=== PATIENT | female | born 1980 | race Hispanic/Latino ===

== ENCOUNTER 2021-06-14 12:00 | Emergency (ER) | payer OTHER ==
[2021-06-14] MEDS ORDERED: Ibuprofen 200 MG TAB ONE (12:21)
== END 2021-06-14 13:08 | disposition home or self-care (01) ==
LOC: ERS 12:00
DX: S83.91XA Sprain of unspecified site of right knee, initial encounter (principal); E11.9 Type 2 diabetes mellitus without complications; E78.5 Hyperlipidemia, unspecified; V43.62XA Car passenger injured in collision with other type car in traffic accident, initial encounter; Y92.410 Unspecified street and highway as the place of occurrence of the external cause; Z79.84 Long term (current) use of oral hypoglycemic drugs; Z79.899 Other long term (current) drug therapy

== ENCOUNTER 2022-04-19 20:58 | Inpatient (IN) | payer OTHER ==
[2022-04-19] MEDS ORDERED: Piperacillin/Tazobactam 3.375 GM VIAL ONE (21:51)
[2022-04-19] MEDS ORDERED: Vancomycin 1 GM/200 ML (FROZEN) BAG ONE (21:51)
[2022-04-19 22:20] LABS: #Eosinphils 0.4 thou/uL (0.0-0.7); #Lymphocytes 1.6 thou/uL (1.20-3.40); #Monocytes 0.8 thou/uL (0.11-0.59); %Basophils 0.3 % (0.0-1.0); %Eosinophils 5.2 % (0.0-10.0); %Lymphocytes 20.2 % (21.0-51.0); %Monocytes 9.6 % (0.0-10.0); %Neutrophils 64.7 % (42.0-75.0); Hemoglobin 11.5 g/dL (12.0-16.0); Mean Corpuscular HGB CONC 35.2 g/dL (32.0-36.0); Mean Corpuscular Hemoglobin 26.5 pg (27.0-31.0); Mean Corpuscular Volume 75.2 fl (78.0-98.0); Mean Platelet Volume 9.5 fL (7.4-10.4); Platelet Count 250 10x3/uL (130-400); RBC Distribution Width 14.5 % (11.5-14.5); Red Blood Cell (RBC) Count 4.35 mill/uL (4.20-5.40); White Blood Cell (WBC) Count 7.8 10x3/uL (4.8-10.8)
[2022-04-19 22:37] LABS: ALT (SGPT) 8 U/L (8-55); AST (SGOT) 15 U/L (5-34); Albumin 3.8 g/dL (3.5-5.0); Alkaline Phosphatase 70 U/L (40-110); Anion Gap 18 mmol/L (10-20); BUN (Urea Nitrogen) 9 mg/dL (7.0-18.7); Bilirubin, Total 0.2 mg/dL (0.2-1.2); Calc. Creatinine Clearance 0 mL/min (70-130); Calcium 8.8 mg/dL (7.8-10.44); Carbon Dioxide 19 mmol/L (22-29); Chloride 99 mmol/L (98-107); Estimated GFR 113; Globulin 4.1 g/dL (2.4-3.5); Glucose 380 mg/dL (70-105); Potassium 3.9 mmol/L (3.5-5.1); Protein, Total 7.9 g/dL (6.0-8.3); Sodium 132 mmol/L (136-145)
[2022-04-19] MEDS ORDERED: Acetaminophen 325 MG TAB PO PRN (23:41)
[2022-04-19] MEDS ORDERED: Ondansetron PF 4 MG/2 ML Vial IVP PRN (23:41)
[2022-04-19] MEDS ORDERED: Acetaminophen 650 MG Suppository PR PRN (23:41)
[2022-04-19] MEDS ORDERED: Ondansetron ODT 4 MG TAB PO PRN (23:41)
[2022-04-20 00:40] VITALS: BMI 28.0
[2022-04-20 01:35] LABS: Lactic Acid 2.6 mmol/L (0.5-2.2)
[2022-04-20 01:40] LABS: Troponin I Less than 0.010 ng/mL (< 0.028)
[2022-04-20] MEDS ORDERED: Dextrose 50% Abboject 50 ML SYRINGE SLOW IVP PRN (01:40)
[2022-04-20] MEDS ORDERED: Dextrose 5% in Water 1,000 ML IV PRN (01:40)
[2022-04-20] MEDS ORDERED: Morphine 4 MG/ML VIAL SLOW IVP SCH ×2 (02:00→05:15)
[2022-04-20] MEDS: Insulin Regular 300 UNITS/3 ML VIAL SC PRN ×5 (02:29→20:21)
[2022-04-20] MEDS ORDERED: Sodium Chloride 0.9% 1,000 ML IV SCH (03:30)
[2022-04-20] MEDS ORDERED: diphenhydrAMINE 50 MG/ML VIAL IVP PRN (04:31)
[2022-04-20] MEDS: Piperacillin/Tazobactam 3.375 GM in Sodium Chloride 0.9% 100 ML IVPB SCH ×2 (04:53→11:15)
[2022-04-20] MEDS: Sodium Chloride 0.9% 1,000 ML IV SCH ×2 (04:54→11:16)
[2022-04-20] MEDS ORDERED: Hydrocortisone 1% Cream 30 GM TUBE TOP SCH (05:00)
[2022-04-20 05:37] LABS: #Eosinphils 0.3 thou/uL (0.0-0.7); #Lymphocytes 1.2 thou/uL (1.20-3.40); #Monocytes 0.7 thou/uL (0.11-0.59); #Neutrophils 5.8 thou/uL (1.40-6.50); %Basophils 0.1 % (0.0-1.0); %Eosinophils 3.8 % (0.0-10.0); %Lymphocytes 14.6 % (21.0-51.0); %Monocytes 8.6 % (0.0-10.0); Hemoglobin 9.4 g/dL (12.0-16.0); Mean Corpuscular HGB CONC 32.5 g/dL (32.0-36.0); Mean Corpuscular Hemoglobin 25.1 pg (27.0-31.0); Mean Corpuscular Volume 77.3 fl (78.0-98.0); Mean Platelet Volume 9.3 fL (7.4-10.4); Platelet Count 194 10x3/uL (130-400); RBC Distribution Width 14.5 % (11.5-14.5); Red Blood Cell (RBC) Count 3.75 mill/uL (4.20-5.40); White Blood Cell (WBC) Count 7.9 10x3/uL (4.8-10.8)
[2022-04-20 05:44] LABS: Hemoglobin A1c 11.8 % (4.0-6.0)
[2022-04-20 06:07] LABS: Troponin I Less than 0.010 ng/mL (< 0.028)
[2022-04-20 06:34] LABS: Anion Gap 12 mmol/L (10-20); BUN (Urea Nitrogen) 5 mg/dL (7.0-18.7); Calc. Creatinine Clearance 149 mL/min (70-130); Calcium 7.3 mg/dL (7.8-10.44); Carbon Dioxide 20 mmol/L (22-29); Chloride 104 mmol/L (98-107); Estimated GFR 119; Glucose 234 mg/dL (70-105); Potassium 3.6 mmol/L (3.5-5.1); Sodium 132 mmol/L (136-145)
[2022-04-20] MEDS ORDERED: VANCOMYCIN 1.25 GM/250 ML BAG 1.25 GM in Premix Bag 1 BAG IVPB SCH (08:00)
[2022-04-20 08:57] LABS: Lactic Acid 2.7 mmol/L (0.5-2.2)
[2022-04-20] MEDS ORDERED: Vancomycin 1 GM in Premix Bag 1 BAG IVPB SCH (09:00)
[2022-04-20] MEDS: Hydrocortisone 1% Cream 30 GM TUBE TOP SCH ×3 (09:19→22:16)
[2022-04-21] MEDS ORDERED: Sodium Chloride 0.65% Nasal 44 ML BOT EA NARE PRN (01:18)
[2022-04-21] MEDS: Insulin Regular 300 UNITS/3 ML VIAL SC PRN ×3 (06:15→20:57)
[2022-04-21 08:02] LABS: #Eosinphils 0.4 thou/uL (0.0-0.7); #Lymphocytes 1.8 thou/uL (1.20-3.40); #Monocytes 0.6 thou/uL (0.11-0.59); #Neutrophils 2.9 thou/uL (1.40-6.50); %Basophils 0.4 % (0.0-1.0); %Eosinophils 7.8 % (0.0-10.0); %Lymphocytes 30.9 % (21.0-51.0); %Monocytes 10.1 % (0.0-10.0); %Neutrophils 50.9 % (42.0-75.0); Hemoglobin 9.4 g/dL (12.0-16.0); Mean Corpuscular HGB CONC 33.2 g/dL (32.0-36.0); Mean Corpuscular Hemoglobin 25.3 pg (27.0-31.0); Mean Corpuscular Volume 76.3 fl (78.0-98.0); Mean Platelet Volume 9.1 fL (7.4-10.4); Platelet Count 212 10x3/uL (130-400); RBC Distribution Width 14.5 % (11.5-14.5); Red Blood Cell (RBC) Count 3.73 mill/uL (4.20-5.40); White Blood Cell (WBC) Count 5.7 10x3/uL (4.8-10.8)
[2022-04-21] MEDS: Hydrocortisone 1% Cream 30 GM TUBE TOP SCH ×2 (08:27→20:57)
[2022-04-21 08:38] LABS: ALT (SGPT) Less than 7 U/L (8-55); AST (SGOT) 11 U/L (5-34); Albumin 3.1 g/dL (3.5-5.0); Alkaline Phosphatase 43 U/L (40-110); Anion Gap 12 mmol/L (10-20); BUN (Urea Nitrogen) 5 mg/dL (7.0-18.7); Bilirubin, Total 0.2 mg/dL (0.2-1.2); Calc. Creatinine Clearance 144 mL/min (70-130); Calcium 8.3 mg/dL (7.8-10.44); Carbon Dioxide 24 mmol/L (22-29); Chloride 102 mmol/L (98-107); Estimated GFR 118; Globulin 3.1 g/dL (2.4-3.5); Glucose 241 mg/dL (70-105); Potassium 3.7 mmol/L (3.5-5.1); Protein, Total 6.2 g/dL (6.0-8.3); Sodium 134 mmol/L (136-145)
[2022-04-21] MEDS ORDERED: diphenhydrAMINE 12.5 MG/5 ML UDCUP PO SCH (09:28)
[2022-04-21] MEDS: methylPREDNISolone Sod Succ 40 MG VIAL IVP SCH ×2 (11:10→20:58)
[2022-04-21] MEDS ORDERED: Dextrose 5% in Water 1,000 ML IV PRN (16:47)
[2022-04-21] MEDS ORDERED: Dextrose 50% Abboject 50 ML SYRINGE SLOW IVP PRN (16:47)
[2022-04-21] MEDS: metFORMIN 500 MG TAB PO SCH (17:23)
[2022-04-21] MEDS: HumaLOG 300 UNITS/3 ML VIAL SC PRN (17:23)
[2022-04-21] MEDS: Famotidine 20 MG TAB PO SCH (20:57)
[2022-04-21] MEDS ORDERED: Insulin Glargine 30 UNITS/0.3 ML VIAL SC SCH (21:00)
[2022-04-22] MEDS: HumaLOG 300 UNITS/3 ML VIAL SC PRN ×3 (05:51→17:55)
[2022-04-22 07:21] LABS: #Lymphocytes 1.2 thou/uL (1.20-3.40); #Monocytes 0.3 thou/uL (0.11-0.59); #Neutrophils 7.1 thou/uL (1.40-6.50); %Basophils 0.1 % (0.0-1.0); %Eosinophils 0.3 % (0.0-10.0); %Lymphocytes 14.2 % (21.0-51.0); %Monocytes 2.9 % (0.0-10.0); %Neutrophils 82.5 % (42.0-75.0); Mean Corpuscular HGB CONC 33.6 g/dL (32.0-36.0); Mean Corpuscular Hemoglobin 25.5 pg (27.0-31.0); Mean Corpuscular Volume 75.8 fl (78.0-98.0); Mean Platelet Volume 9.4 fL (7.4-10.4); Platelet Count 268 10x3/uL (130-400); RBC Distribution Width 14.7 % (11.5-14.5); Red Blood Cell (RBC) Count 3.95 mill/uL (4.20-5.40); White Blood Cell (WBC) Count 8.6 10x3/uL (4.8-10.8)
[2022-04-22 07:55] LABS: ALT (SGPT) 7 U/L (8-55); AST (SGOT) 10 U/L (5-34); Albumin 3.7 g/dL (3.5-5.0); Alkaline Phosphatase 52 U/L (40-110); Anion Gap 15 mmol/L (10-20); BUN (Urea Nitrogen) 10 mg/dL (7.0-18.7); Bilirubin, Total 0.4 mg/dL (0.2-1.2); Calc. Creatinine Clearance 119 mL/min (70-130); Calcium 9.3 mg/dL (7.8-10.44); Carbon Dioxide 25 mmol/L (22-29); Chloride 98 mmol/L (98-107); Estimated GFR 112; Globulin 3.4 g/dL (2.4-3.5); Glucose 309 mg/dL (70-105); Potassium 3.9 mmol/L (3.5-5.1); Protein, Total 7.1 g/dL (6.0-8.3); Sodium 134 mmol/L (136-145)
[2022-04-22] MEDS: metFORMIN 500 MG TAB PO SCH ×2 (08:10→18:13)
[2022-04-22] MEDS: Hydrocortisone 1% Cream 30 GM TUBE TOP SCH (08:11)
[2022-04-22] MEDS: Famotidine 20 MG TAB PO SCH (09:03)
[2022-04-22] MEDS: methylPREDNISolone Sod Succ 40 MG VIAL IVP SCH (10:32)
[2022-04-22 18:33] VITALS: BP 110/72; TEMP 98.6
[2022-04-22] MEDS ORDERED: Insulin Glargine 30 UNITS/0.3 ML VIAL SC SCH (21:00)
== END 2022-04-22 18:59 | disposition home or self-care (01) | DRG 603 ==
LOC: ERS 20:58 → T4-B 23:14
PROVIDERS: ADMIT Student in an Organized Health Care Education/Training Program; ATTEND Internal Medicine
DX: L03.811 Cellulitis of head [any part, except face] (principal); D82.1 Di George's syndrome; T78.3XXA Angioneurotic edema, initial encounter; Z20.822 Contact with and (suspected) exposure to COVID-19; E78.5 Hyperlipidemia, unspecified; E11.319 Type 2 diabetes mellitus with unspecified diabetic retinopathy without macular edema; G43.909 Migraine, unspecified, not intractable, without status migrainosus; E11.65 Type 2 diabetes mellitus with hyperglycemia; J32.9 Chronic sinusitis, unspecified; Z79.899 Other long term (current) drug therapy
CPT/HCPCS: 36415; 36416; 70450; 70486; 80048; 80053; 83036; 83605; 84484; 85025; 87040; 96374; 96375; 97139; J1815; J2270; J2543; J2920; J3370-JW; J3490; J7050; Q0163; U0003; U0005